=== PATIENT | male | born 1980 | race Caucasian/White ===

== ENCOUNTER 2020-02-20 00:10 | Outpatient (CLI) | payer OTHER, SELFPAY ==
[2020-02-20 18:02] LABS: SARS-CoV-2 RNA PCR Negative
== END 2020-02-20 00:11 | disposition home or self-care (01) ==
LOC: ANHCOVIDDT 00:10
PROVIDERS: PCP Nurse Practitioner Family; Visit Provider Surgery
DX: Z01.812 Encounter for preprocedural laboratory examination (principal); Z20.828 Contact with and (suspected) exposure to other viral communicable diseases
CPT/HCPCS: 87635; C9803; U0003

== ENCOUNTER 2020-02-23 01:37 | Day surgery (SDC) | payer OTHER, SELFPAY ==
[2020-02-18 08:52] VITALS: BMI 24.3
[2020-02-23 10:00] VITALS: BP 141/86; PULSE 60; RESP 18; TEMP 36.3; O2SAT 100
[2020-02-23] MEDS: LACTATED RINGERS 1,000 ML 30 ML IV CONT ×2 (10:01→12:34)
--- NOTE | 2020-02-23 10:11 | WPDANESEPPF ---
Anes - Initial Pre Proc Eval Procedure: Operation Date: 02/23/20 12:00 Proposed Procedures p Excision Left Shoulder Skin Lesion, Excision Left Face Skin Lesion - Bryant Horta DO Date/Time: 02/23/20 10:11 Surgeon: Bryant Horta DO Pre Op Diagnosis: Left Shoulder 2.5 cm Skin Lesion, Left Face Lesion Patient Data Age: 39 Gender: M Height: 5 ft 10 in Weight: 77.8 kg Last Vital Signs Temp 36.3 C L 02/23/20 10:00 Pulse 60 02/23/20 10:00 Resp 18 02/23/20 10:00 BP 141/86 H 02/23/20 10:00 Pulse Ox 100 02/23/20 10:00 Allergies Allergy/AdvReac Type Severity Reaction Status Date / Time No Known Allergies Allergy Verified 02/23/20 10:02 Home Medications Medication Instructions Recorded Confirmed Type No Home Medications 02/23/20 02/23/20 History Patient hx anesthesia problems: none Family hx anesthesia problems: none [facility] Past Medical History Medical History Nicotine dependence, cigarettes, uncomplicated No active medical problems Surgical History Surgical History History of left knee surgery Social History Social History Smoking packs per day: 1 Smoking cigarettes per day: 20.0 Years smoked: 10 Smoking pack-years: 10.00 Smoking status: Current every day smoker Tobacco type: cigarettes Alcohol intake: current Drinks per week: 12 Substance use: current Substance use type: marijuana Last use: 02/17/2020 Additional occupation/education comments: [employer] Spiritual care concerns: No Anes - Eval Final PreProcedure Day of Procedure 02/23/20 10:11 Patient weight: normal Heart: regular rate and rhythm Lungs: clear to auscultation Airway: Mallampati scale class II Neurological: alert and oriented Last oral intake: >/= 8 hours ASA classification: II Emergent: no Anesthetic plan: proceed Anesthesia type and monitoring: general GIVS and standard monitoring Informed Consent: The patient's anesthetic plan and its attendant risks and benefits were discussed with the patient/family/POA. Questions were solicited and answers provided to the satisfaction of the patient/family/POA.
--- NOTE | 2020-02-23 11:30 | WPDHPUPDATE1 ---
History and Physical Update Update Date/Time: 02/23/20 11:30 History and Physical has been reviewed, including an updated exam of the patient. There are NO changes in the patient's condition. Risks, benefits, and alternatives have been discussed and questions answered. Patient agrees to proceed with procedure.
[2020-02-23] MEDS: ceFAZolin 2 GM/D5W 50 ML 2 GM/50 ML BAG IVPB (11:51)
[2020-02-23] MEDS: LIDO 1%/EPINEPHRINE 1:100,000 20 ML VIAL INFILTRATE (12:09)
[2020-02-23 12:34] VITALS: BP 136/82; PULSE 87; RESP 12; O2SAT 100
--- NOTE | 2020-02-23 12:45 | P.OP_ITS ---
Procedure Note - Detailed Date of procedure: 02/23/20 Pre-op diagnosis: Left Shoulder 2 cm Skin Lesion, Left Face Lesion Post-op diagnosis: same Procedure performed: 1. Excision 2 cm left shoulder skin lesion 2. Excision 1 cm left face skin lesion Description of procedure: * procedure as well as risks, benefits, and alternatives were discussed with the patient. Written consent was obtained and placed in chart prior to procedure. Patient was brought back to surgical suite. He was placed supine on operating table. Time-out was done to confirm patient and procedure. IV sedation was administered by the Anesthesia Depar tment. His left shoulder and face area was prepped and draped in sterile fashion using Betadine prep. 1% lidocaine with epinephrine was infiltrated locally around each of the lesions. Wide elliptical incision was made around the left shoulder skin lesion using a 15 blade scalpel. 1 mm margins were obtained on either side of the skin lesion for a total width of 2 cm. The incision was carried all the way down through the dermis. The lesion was then excised the remainder of the way from the surrounding subcu attachments using electrocautery. The lesion was sent to the lab for pathology. Hemostasis was achieved with electrocautery and then the skin edges were reapproximated using 3 0 nylon vertical mattress interrupted sutures. Bacitracin ointment was applied followed by 4 x 4 gauze and Medipore tape. I then moved my attention over to the face lesion. A 1 cm transverse incision was made directly over the lesion using a 15 blade scalpel. I carefully sharply excise the lesion which appeared to be likely a cyst. The cyst was carefully completely excised intact and was sent to the lab for pathology. Electrocautery was then used for hemostasis. The skin edges were then reapproximated using 4 O Monocryl simple interrupted sutures. Exofin glue was applied over this incision. The patient was then awakened from anesthesia and transferred to recovery. Anesthesia: MAC and local ( 1% lidocaine with epinephrine) Surgeon: Bryant Horta DO Estimated blood loss (mL): 5 Pathology: yes Complications: No immediate complications Condition: stable Disposition: same day Findings: * the left shoulder skin lesion was excised. This had exophytic growth with pink margins, possible skin cancer versus granuloma formation. 1 mm margins were obtained on each side of the lesion for a total width of 20 mm. The left face lesion appeared to likely be a cyst. The cyst was carefully excised without rupturing. The entire cyst was completely excised intact and sent for pathology as well. This measured approximately 1 cm.
[2020-02-23 12:50] VITALS: BP 132/87; PULSE 75; RESP 16
[2020-02-23] MEDS: oxyCODONE HCL (*CRX) 5 MG TAB IR PO (12:53)
[2020-02-23 13:20] VITALS: BP 130/78; PULSE 70; RESP 16
== END 2020-02-23 13:30 | disposition home or self-care (01) ==
PROVIDERS: PCP Nurse Practitioner Family; Visit Provider Surgery
PROC: (CPT 11606; principal; 2020-02-23 12:00)
DX: C44.629 Squamous cell carcinoma of skin of left upper limb, including shoulder (principal); L72.0 Epidermal cyst; Z87.891 Personal history of nicotine dependence
CPT/HCPCS: 11606; 11442; 87635; 88304; 88305; A9270; C9803; J0690; J1100; J2250; J2405; J2704; J3010; J7120; U0003

== ENCOUNTER 2020-06-09 14:10 | Outpatient (CLI) | payer OTHER, SELFPAY ==
[2020-06-10 22:46] LABS: SARS-CoV-2 RNA PCR Negative
== END 2020-06-09 14:11 | disposition home or self-care (01) ==
LOC: CHSLAB 14:12
PROVIDERS: PCP Nurse Practitioner Family; Visit Provider Nurse Practitioner Family
DX: Z20.822 Contact with and (suspected) exposure to COVID-19 (principal)
CPT/HCPCS: C9803; U0003; U0005

== ENCOUNTER 2022-10-26 00:38 | Day surgery (SDC) | payer OTHER, SELFPAY ==
[2022-10-24 13:42] VITALS: BMI 24.3
--- NOTE | 2022-10-24 13:42 | PC.NURSE ---
Report to the Outpatient Waiting Room, entrance under the green pavilion located off [facility], at time _0900_ on date _10/26/22_. Planned Procedure Time: _1000_. Time changes happen often and if your time is changed the preop area will call you the afternoon before. - You and your visitor will be asked to self-screen and do not enter if you have any COVID symptoms. - A mask is optional within the hospital at this time. Patients may have clear liquids (water, carbonated beverages, clear teas, apple juice) until 3 hours prior to surgery with a maximum of 20 ounces. - No food from midnight until time of surgery - Infants may have breast milk until 4 hours before surgery, formula 6 hours prior to surgery. - Children will be allowed to drink immediately following surgery. If applicable, please bring a bottle or sippy cup to assist with drinking. Juice, water, soda, and popsicles are readily available. For infants on formula, please bring formula the day of surgery. Pacifiers are allowed. Take the following medications with a SIP of water the morning of surgery: DO NOT STOP ANY OF YOUR OTHER PRESCRIPTION MEDICATIONS PRIOR TO SURGERY ?EXCEPT THE FOLLOWING Medications to discontinue per physician Date to take last dose Please no make-up, nail portuguese, hairspray, perfume, deodorant, or body powder the day of surgery. No jewelry (including any body piercings) or valuables the day of surgery, leave them at home. Please take a shower or bath the night before, or the morning of, surgery with an antibacterial soap. Wear comfortable, loose fitting clothing. Children are encouraged to wear pajamas. - Jewelry must be removed prior to entering the operating room. Rings and piercings that are not removed may be cut off. - The hospital will not accept responsibility for valuables. - Please leave all valuables, including medications, at home the day of surgery. If you are going home after surgery, a licensed bus driver supervisor must drive you home. - NO public transportation without another adult if you receive anesthesia. - We recommend that an adult stay with you for 24 hours following discharge. - We also recommend that you do not drive, make important decision, drink alcoholic beverages, or take any drugs that were not prescribed by your health care provider for at least 24 hours after your discharge time. For Pediatric surgeries, we recommend two adults accompany the child home. Follow any additional instructions given to you from your surgeon. If you or anyone in your household have experienced Covid symptoms in the past week, please notify your surgeon or the nurse liaison at the phone number below for possible testing. Telephone instructions given to _patient_and asked if any additional questions and then verbalized understanding. Patient advised to call surgeon office or pre surgery nurse liaison [phone] if any additional questions.
[2022-10-26] VITALS (8 sets, daily range): BP systolic 100–111; BP diastolic 69–73; PULSE 53–83; RESP 14–16; TEMP 36.3; O2SAT 98–100
--- NOTE | 2022-10-26 07:12 | WPDHPUPDATE1 ---
History and Physical Update Update Date/Time: 10/26/22 07:12 History and Physical has been reviewed, including an updated exam of the patient. There are NO changes in the patient's condition. Risks, benefits, and alternatives have been discussed and questions answered. Patient agrees to proceed with procedure.
[2022-10-26] MEDS: ceFAZolin 2 GM/D5W 50 ML 2 GM/50 ML BAG IVPB (09:00)
--- NOTE | 2022-10-26 13:54 | W.PM.PROC2 ---
Procedure Note - Detailed Date of Procedure 10/27/22 Pre-op Diagnosis left carpal tunnel syndrome Post-op Diagnosis Same Procedure Performed Left open carpal tunnel release Surgeon Mario Aj MD Anesthesia Local Description of Procedure He was taken to the operating room where he was placed supine on the operating table. A time-out was held and confirmed the level left upper extremity was prepped and draped in usual fashion. Site was marked and the area locally infiltrated with 1% lidocaine with epinephrine. The extremity was exsanguinated and the tourniquet inflated to 250 mmHg. The incision was made as marked and blunt dissection through the subcutaneous tissue revealed the palmar fascia. This and the transverse retinaculum were incised with a 15. Blade. Under 3 point retraction the ligament was divided distally and then proximally for complete release. There was no unusual anatomy noted. The skin was then closed with interrupted 4-0 nylon suture. The usual bandage was applied and he is discharged from the operating room stable condition he has a prescription for hydrocodone 5/325 6 6. Estimated Blood Loss 0 Tourniquet Time 5 Drains No Packing No Pathology None sent Complications No immediate complications Condition Stable Disposition Same day
== END 2022-10-26 11:42 | disposition home or self-care (01) ==
PROVIDERS: PCP Physician Assistant; Visit Provider Plastic Surgery
PROC: (CPT 64721; principal; 2022-10-26 10:00)
DX: G56.02 Carpal tunnel syndrome, left upper limb (principal)
CPT/HCPCS: 64721; A9270; J0690

== ENCOUNTER 2022-11-30 03:00 | Day surgery (SDC) | payer OTHER, SELFPAY ==
[2022-11-22 13:26] VITALS: BMI 23.3
--- NOTE | 2022-11-22 13:34 | PC.NURSE ---
Report to the Outpatient Waiting Room, entrance under the green pavilion located off [facility], at time _1300_ on date _11/30/2022. Planned Procedure Time: 1400_. Time changes happen often and if your time is changed the preop area will call you the afternoon before. - You and your visitor will be asked to self-screen and do not enter if you have any COVID symptoms. - A mask is optional within the hospital at this time. Patient MAY EAT OR DRINK UNTIL THE TIME OF ARRIVAL TO THE HOSPITAL Take the following medications with a SIP of water the morning of surgery: NONE DO NOT STOP ANY OF YOUR OTHER PRESCRIPTION MEDICATIONS PRIOR TO SURGERY ?EXCEPT THE FOLLOWING Medications to discontinue per physician NONE Date to take last dose Please no make-up, nail estonian, hairspray, perfume, deodorant, or body powder the day of surgery. No jewelry (including any body piercings) or valuables the day of surgery, leave them at home. Please take a shower or bath the night before, or the morning of, surgery with an antibacterial soap. Wear comfortable, loose fitting clothing. Children are encouraged to wear pajamas. - Jewelry must be removed prior to entering the operating room. Rings and piercings that are not removed may be cut off. - The hospital will not accept responsibility for valuables. - Please leave all valuables, including medications, at home the day of surgery. For Pediatric surgeries, we recommend two adults accompany the child home. Follow any additional instructions given to you from your surgeon. If you or anyone in your household have experienced Covid symptoms in the past week, please notify your surgeon or the nurse liaison at the phone number below for possible testing. Telephone instructions given TO PATIENT__and asked if any additional questions and then verbalized understanding. Patient advised to call surgeon office or pre surgery nurse liaison [phone] if any additional questions.
[2022-11-30] VITALS (7 sets, daily range): BP systolic 109–127; BP diastolic 68–74; PULSE 75–91; RESP 14–18; TEMP 36.8; O2SAT 98–100
--- NOTE | 2022-11-30 12:14 | WPDHPUPDATE1 ---
History and Physical Update Update Date/Time: 11/30/22 12:14 History and Physical has been reviewed, including an updated exam of the patient. There are NO changes in the patient's condition. Risks, benefits, and alternatives have been discussed and questions answered. Patient agrees to proceed with procedure.
[2022-11-30] MEDS: LIDO 1%/EPINEPHRINE 1:100,000 20 ML VIAL 10 ML INFILTRATE (12:31)
--- NOTE | 2022-11-30 12:51 | P.OP_ITS ---
Procedure Note - Detailed Date of Procedure 11/30/22 Pre-op Diagnosis right carpal tunnel syndrome Post-op Diagnosis Same Procedure Performed Right open carpal tunnel release Surgeon Mario Aj MD Anesthesia Local Description of Procedure The right volar wrist was marked with the patient's consent in the holding area. He was taken to the operating room placed supine on the operating table. Time- out was held not confirmed. The site was remarked for incision. It was locally infiltrated with 1% lidocaine and epinephrine. The tourniquet was applied but not utilized. The incision was made as marked and dissection was carried bluntly through the subcutaneous tissue to the palmar aponeurosis. A few bleeding points were cauterized on the setting of 20. Under 3 point retraction aponeurosis and the transverse retinaculum were incised with a 15. Blade. The ligament was divided distally and then proximally to completely release it. There was no unusual anatomy noted. Skin was closed with interrupted 4-0 nylon suture in usual bandage was applied. The patient is discharged from the operating room stable condition with prescription for oxycodone 5/325 7. Estimated Blood Loss 2 Tourniquet Time 0 Drains No Packing No Pathology None sent Complications No immediate complications Condition Stable Disposition Same day
== END 2022-11-30 13:15 | disposition home or self-care (01) ==
PROVIDERS: PCP Physician Assistant; Visit Provider Plastic Surgery
PROC: (CPT 64721; principal; 2022-11-30 13:00)
DX: G56.01 Carpal tunnel syndrome, right upper limb (principal)
CPT/HCPCS: 64721; A9270

== ENCOUNTER 2023-05-11 10:27 | Emergency (ER) | payer OTHER, SELFPAY ==
[2023-05-11 10:27] VITALS: BP 111/70; PULSE 93; RESP 18; TEMP 36.6; O2SAT 100
--- NOTE | 2023-05-11 10:44 | ED.URI ---
HPI - URI/Sore Throat General Chief Complaint: Upper Respiratory Infection Stated Complaint: sore throat Time Seen by Provider: 05/11/23 10:38 Source: patient Mode of arrival: ambulatory Limitations: no limitations History of Present Illness HPI Narrative: Patient is a 42 year old male with a significant PMH that presents today with URI symptoms. He has cough, congestion, rhinorrea for the last 3 days. He also has a sore throat. He has body aches as well. He says his low back hurts from the body aches. He denies any sick contacts. He has not checked for COVID. He says the symptoms have been getting worse. MD elicited complaint: fever, cough, sore throat, rhinorrhea, nasal congestion and sinus pain Onset (ago): day(s) Consistency: constant Severity: mild Description of mucous: yellow and green Able to tolerate fluids by mouth: Yes Exacerbating factors: nothing Relieving factors: nothing Associated symptoms: myalgias, nasal congestion and sore throat Related Data Allergies Allergy/AdvReac Type Severity Reaction Status Date / Time No Known Allergies Allergy Verified 05/11/23 10:40 Review of Systems Review of Systems: All systems reviewed & are unremarkable except as noted in HPI and below Constitutional: Constitutional: Reports no additional constitutional complaints Eyes: Eyes: Reports no additional eye complaints ENT: Reports as per HPI Cardiovascular: Cardiovascular: Reports no additional cardiovascular complaints Respiratory: Respiratory: Reports as per HPI, Reports chest congestion and Reports cough Gastrointestinal: Gastrointestinal: Reports no additional gastrointestinal complaints Genitourinary: Genitourinary: Reports no additional male genitourinary complaints Musculoskeletal: Musculoskeletal: Reports no additional musculoskeletal complaints Integumentary/Breasts: Skin/Breast: Reports system reviewed and no additional complaints, except as docu Neurologic: Reports system reviewed and no additional complaints, except as documented Psychiatric: Psychiatric: Reports no additional psychiatric complaints Endocrine: Endocrine: Reports no additional endocrine complaints Hematologic/Lymphatic: Hematologic/Lymphatic: Reports no additional hematologic/lymphatic complaints Allergic/Immunologic: Allergic/Immunologic: Reports no additional allergic/immunologic complaints [facility] Past Medical History Medical History Nicotine dependence, cigarettes, uncomplicated No active medical problems Surgical History Surgical History History of left knee surgery Skin lesion of left upper extremity Social History Social History Smoking packs per day: 1 Smoking cigarettes per day: 20.0 Years smoked: 10 Smoking pack-years: 10.00 Smoking status: Current every day smoker Tobacco type: cigarettes Alcohol intake: former Drinks per week: 12 Alcohol use details: LAST USE IN DECEMBER 2021 Substance use: never Substance use type: marijuana Other substance usage details: ONCE PER WEEK Last use: 02/17/2020 Living arrangements: with family Occupation/Education: occupation Additional occupation/education comments: [employer] Spiritual care concerns: No Exam Const: General: ill appearing Nutritional Appearance: well nourished Orientation/consciousness: patient oriented x3 HENMT: Head: normal to inspection Ears: external ears normal Face/Nose/Sinus: Normal external nose present Face and sinus: normal facial exam Mouth: Yes Normal oral and palatal mucosa present Teeth and gingiva: abnormal tooth and associated gingiva Throat: posterior oropharynx normal Eyes: Conjunctivae: conjunctivae normal Pupils: Equal, round and reactive pupils present EOM: EOMs intact bilaterally Neck: Neck: normal visual inspection Chest: Chest pal
[2023-05-11] MEDS: cefTRIAXone 1 GM, LIDOCAINE HCL 1% LOCAL INJ 2.1 ML IM (11:12)
[2023-05-11] MEDS: KETOROLAC (*BKC) 60 MG/2 ML VIAL IM (11:13)
[2023-05-11 11:19] LABS: Strep Group A RT-PCR NOT DETECTED (Negative)
[2023-05-11 11:24] LABS: SARS-CoV-2 RNA PCR Positive (Negative)
[2023-05-11 11:25] LABS: Influenza A QL RT-PCR Negative (Negative); Influenza B QL RT-PCR Negative (Negative); RSV RNA, RT-PCR Negative (Negative)
[2023-05-11 11:30] VITALS: O2SAT 100
[2023-05-11 11:49] VITALS: BP 110/82; PULSE 90; RESP 18; TEMP 36.7; O2SAT 100
== END 2023-05-11 11:49 | disposition home or self-care (01) ==
PROVIDERS: Emergency Provider Family Medicine; PCP Physician Assistant
DX: U07.1 COVID-19 (principal); H60.501 Unspecified acute noninfective otitis externa, right ear; J06.9 Acute upper respiratory infection, unspecified; F17.210 Nicotine dependence, cigarettes, uncomplicated
CPT/HCPCS: 87637; 87651; 96372; 99284; J1885

== ENCOUNTER 2024-04-16 07:28 | Outpatient (CLI) | payer OTHER, SELFPAY ==
--- NOTE | ~2024-04-16 | XR_ITS ---
Right Shoulder Technique: AP and scapular Y views were obtained. Clinical History: Pain Findings: No fracture or dislocation is seen. Osseous alignment is anatomic. The glenohumeral and acr omioclavicular joint spaces are preserved. Soft tissues are unremarkable. Impression: Unremarkable right shoulder radiographs. Reviewed, dictated and finalized at [facility]. 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
== END 2024-04-16 07:29 | disposition home or self-care (01) ==
LOC: CHSIMG 07:31
PROVIDERS: PCP Physician Assistant; Visit Provider Physician Assistant
DX: M25.511 Pain in right shoulder (principal)
CPT/HCPCS: 73030

== ENCOUNTER 2024-06-09 15:10 | Outpatient (RCR) | payer OTHER, SELFPAY ==
--- NOTE | 2024-06-09 16:27 | PTOPEVAL1 ---
Assessment and note entered by Blu العلي Evaluation Information Assessment Status Evaluation ICD-10 Condition Codes (PT) Pain in right shoulder M25.511 Onset 01/27/24 Subjective Information Pt. reports that he injured the right shoulder around January. He had no incident, just gradual onset of pain. He describes pain in the area of the anterior and posterior shoulder. He reports that he underwent x-ray which was negative . he reports that he gets increased pain with putting weight through the right arm. 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 He states that pain will wake him at night. He states that he uses Aleve before bed to help reduce pain. He states that he cannot lay on the right shoulder. He notes increased pain with reaching behind his back and overhead. He states that his goal is to reduce his right shoulder pain. He is right hand dominant. Reported Pain Level Pain Score 7: Self Report Assessment PT Clinical Summary Pt. is a 43 year old male who enters the clinic with right shoulder pain. Pt. presents with indications of impingement syndrome on the right on this date. He demonstrates improved proximal right u.e. strength, impaired shoulder IR ROM on right and impaired postural awareness and pain on this date. Continued skilled PT is indicated in order to improve these areas to allow the pt. to be able to participate in IADL's with improved comfort and efficiency. Plan of Care Interventions Electrical Stimulation,Hot Pack/Cold Pack,Neuro Re -education,Patient/Caregiver Education,Therapeutic Activities,Therapeutic Exercise PT Services Indicated Yes Treatment Frequency and 2x/week x 8 visits Duration These treatments will address the objective and functional deficits as defined above. The patient will be advanced safely and appropriately in order for the patient to progress towards his/her prior level of function. Additional exercises will be introduced and as well as a comprehensive home exercise program upon discharge, if needed, ?to ensure carryover of functional gains achieved in the clinic. This treatment plan has been reviewed and agreement upon by the patient.
--- NOTE | 2024-06-09 16:29 | OPREHPOC ---
Outpatient Therapy Plan of Care This is a Multidisciplinary Plan of Care that may contain components documented by all disciplines (PT, OT, and ST.) PT Problem 1 PT Problem #1 Knowledge Deficit PT Goal 1 Goal / Goal Update Pt. will be independent with a HEP addressing strength and postural awarness Target Visit 2 PT Problem 2 PT Problem #2 Pain PT Goal 1 Goal / Goal Update Reduce pain reports to 4/10 at worst with all work related duties and lifting activities Target Visit 8 PT Problem 3 PT Problem #3 Impaired Strength PT Goal 1 Goal / Goal Update demonstrate 5/5 proximal right u.e strength lift 10# object overhead with right elbow extended without pain for 10 reps Target Visit 8 PT Problem 4 PT Problem #4 Impaired Functional Mobility PT Goal 1 Goal / Goal Update Pt. report being able to sleep without pain disturbance and use of medication Target Visit 8
--- NOTE | 2024-06-26 16:37 | PCPTNOTE ---
06/26/24: Pt cancelled due to being sick. -Ngozi Grijalva, PT
--- NOTE | 2024-07-08 16:34 | PCPTNOTE ---
Patient called & cancelled scheduled appointment this date due to being sick. -Ngozi Grijalva, PT
--- NOTE | 2024-07-10 16:19 | PCPTNOTE ---
07/10/24: Pt cancelled today's appointment after note was opened. -Ngozi Grijalva, PT
--- NOTE | 2024-07-15 17:14 | OPREHPOC ---
Outpatient Therapy Plan of Care This is a Multidisciplinary Plan of Care that may contain components documented by all disciplines (PT, OT, and ST.) PT Problem 1 PT Problem #1 Knowledge Deficit PT Goal 1 Goal / Goal Update Pt. will be independent with a HEP addressing strength and postural awarness Target Visit 2 Progress Met PT Problem 2 PT Problem #2 Pain PT Goal 1 Goal / Goal Update Reduce pain reports to 4/10 at worst with all work related duties and lifting activities Target Visit 8 Progress Not Met PT Problem 3 PT Problem #3 Impaired Strength PT Goal 1 Goal / Goal Update demonstrate 5/5 proximal right u.e strength -met lift 10# object overhead with right elbow extended without pain for 10 reps -not met Target Visit 8 Progress Partially Met PT Problem 4 PT Problem #4 Impaired Functional Mobility PT Goal 1 Goal / Goal Update Pt. report being able to sleep without pain disturbance and use of medication Target Visit 8 Progress Not Met
--- NOTE | 2024-07-15 17:14 | PTOPDC ---
Assessment and note entered by Ngozi Grijalva, PT Evaluation Information Assessment Status Discharge ICD-10 Condition Codes (PT) Pain in right shoulder M25.511 Onset 01/27/24 Subjective Information Jeffrey Omer reports his right shoulder is doing a little better however, he has not been lifting as much at work due to the cold weather. He also has been avoiding lifting at home. He continues to have difficulty getting to sleep and lifting overhead. He plans to call the doctor for a follow up and see about getting a MRI. Reported Pain Level Pain Score 3: Self Report Pain Score 3: Self Report Assessment PT Clinical Summary Jeffrey Omer has completed 7 skilled PT visits for right shoulder pain. He is reporting minimal improvements in right shoulder pain and still has difficulty sleeping and lifting past shoulder height. He demonstrates pain at end range flexion and abduction AROM of the right shoulder and positive special tests for impingement and possible rotator cuff pathology. He plans to follow up with his physician regarding ongoing pain and deficits. He will be discharged from skilled PT at this time. Plan of Care PT Services Indicated No
== END 2024-07-15 17:17 | disposition home or self-care (01) ==
LOC: CHSPT 15:10
PROVIDERS: Visit Provider Physician Assistant
DX: M25.511 Pain in right shoulder (principal)
CPT/HCPCS: 97014; 97110; 97140; 97161; G0283

== ENCOUNTER 2024-08-02 07:37 | Outpatient (CLI) | payer OTHER, SELFPAY ==
--- NOTE | ~2024-08-02 | MR_ITS ---
EXAMINATION: MR shoulder RT wo con DATE: 08/02/2024 08:34 INDICATION: Right upper extremity pain radiating down the right arm. TECHNIQUE: Magnetic resonance imaging (MRI) of the right shoulder was performed without intravenous c ontrast. Sequences included axial PD-weighted FS FSE, coronal oblique PD-weighted FS FSE and T2-weigh syed FS FSE, and sagittal oblique T2-weighted FS FSE and T1-weighted FSE. COMPARISON: Right shoulder radiographs 04/16/2024 FINDINGS: Coracoacromial arch: The acromion undersurface is curved in morphology (type II). There is moderate osteoarthritis of acro mioclavicular joint with prominent edema-like marrow signal intensity and capsular hypertrophy and ed terri. There is mild subacromial/subdeltoid bursitis. Rotator cuff: There is severe tendinopathy of the conjoined portion of supraspinatus and infraspinatus tendons. Ter es minor tendon is normal. Subscapularis tendon is normal. The rotator cuff muscle bellies are normal . Biceps tendon and glenoid labrum: Biceps tendon is in bicipital groove. There is a longitudinal split tear of biceps tendon. The glenoi d labrum is normal. Fluid: There is a small glenohumeral joint effusion. Bones/cartilage: Glenoid cartilage is normal. Humeral head cartilage is normal. IMPRESSION: 1. Moderate acromioclavicular joint osteoarthritis. 2. Severe rotator cuff tendinopathy. No tear. 3. Longitudinal split tear of biceps tendon. 4. Mild subacromial/subdeltoid bursitis. 5. Small glenohumeral joint effusion. Reviewed, dictated and finalized at location A. T NURSE
--- OUTSIDE RECORDS SUMMARY | 2024-08-02 07:40 | XMS_ITS | Encounter Summary ---
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
--- OUTSIDE RECORDS SUMMARY | 2024-08-02 07:40 | XMS_ITS | Clinical Summary ---
Author Organization [facility] Address [address] [place] [address] Care Team Providers Care Csr Retail Name Role Phone Christopher Roger MD Primary Care Provider [phone] [facility],non-owned Affiliates and Associated Physician Practices is amultiple site organization consisting of ambulatory clinics and hospital sitesin [place], [place], [place] and [place]. This disclosure is being madepursuant to the Care Everywhere program and may not contain all information available regarding this patient. Last updated 18.[facility] Active Problems Problem Noted Date Diagnosed Date Laceration of left lower leg without foreign bod y 04/05/2014 Immunizations Name Administration Dates Next Due INFLUENZA VACCINE, TRIV. (AF LURIA, FLUZONE TRIVALENT; 6MO+) (IIV3) 04/06/2014 PNEUMOCOCCAL PPSV23 04/06/2014 Social History Tobacco Use Types Packs/Day Years Used Date Smoking Tobacco: Every Day Cigarettes Alcohol Use Standard Drinks/Week Comments Yes 0 (1 standard drink = 0.6 oz pur e alcohol) Sex and Gender Information Value Date Recorded Sex Assigned at Not on file Gender Identity Not on file Sexual Orientation Not on file Last Filed Vital Signs Vital Sign Reading Time Taken Comments Blood Pressure 137/81 05/26/2014 1:46 PM DOT NET DEVELOPER Pulse 84 05/26/2014 1:46 PM DOT NET DEVELOPER Temperature 36.7 C (98.1 F) 05/26/2014 1:46 PM DOT NET DEVELOPER Respiratory Rate 16 04/06/2014 1:10 PM DOT NET DEVELOPER Oxygen Saturation 100% 04/06/2014 1:10 PM DOT NET DEVELOPER Inhaled Oxygen Concentration - - Weight 79.6 kg (175 lb 6.4 oz) 05/26/2014 1:46 P M DOT NET DEVELOPER Height 177.8 cm (5' 10 ) 05/26/2014 1:46 PM DOT NET DEVELOPER Body Mass Index 25.17 05/26/2014 1:46 PM DOT NET DEVELOPER Plan of Treatment Health Maintenance Due Date Last Done Comments LIPID TESTING 1982 HIV SCREENING 1997 HEPATITIS C SCREENING 10/20/2000 DTAP/TDAP/TD VACCINES (1 - Tdap) 2001 HEPATITIS B VACCINE (1 of 3 - 19+ 3-dose series) 2001 COVID-19 VACCINE (1 - 2023-2 5 season) 2024 INFLUENZA VACCINE (#1) 2024 04/06/2014 DEPRESSION SCREENING 05/28/2024 ZOSTER VACCINE (1 of 2) 2032 PNEUMOCOCCAL VACCINE Aged Out 04/06/2014 No long er eligible based on patient's age to complete this topic HIB VACCINE Aged Out No longer eligi ble based on patient's age to complete this topic HPV VACCINE Aged Out No longer eligi ble based on patient's age to complete this topic MENINGOCOCCAL (Group B) VACCINE Aged Out No longer eligible based on patient's age to complete this topic MENINGOCOCCAL VACCINE Aged Out No feli gaurav eligible based on patient's age to complete this topic Care Teams Csr Retail Relationship Specialty Start Date End Date Christopher Roger MD [address] [place] [address] [place] [address] PCP - General 04/21/14
--- OUTSIDE RECORDS SUMMARY | 2024-08-02 07:40 | XMS_ITS | Clinical Summary ---
Author Organization [facility] Address [address] [place] [address] Care Team Providers Care Reordering Clerk Name Role Phone Phu Causey Primary Care Provider [phone] Silvestre Brewster MD Unavailable + [phone] Allergies No known active allergies Medications No known medications Active Problems No known active problems Social History Tobacco Use Types Packs/Day Years Used Date Smoking Tobacco: Every Day Smokeless Tobacco: Never Personal Safety Answer Date Recorded Getting School Help Needed Not on file 05/21 Sex and Gender Information Value Date Recorded Sex Assigned at Not on file Legal Sex Male 12:16 PM CDT Gender Identity Not on file Sexual Orientation Not on file Obstetrics History Last Filed Vital Signs Vital Sign Reading Time Taken Comments Blood Pressure 127/78 04/07/2021 8:54 AM AUTOMOTIVE GLAZIER Pulse 72 04/07/2021 8:54 AM AUTOMOTIVE GLAZIER Temperature 36.3 C (97.3 F) 04/07/2021 8:54 AM AUTOMOTIVE GLAZIER Respiratory Rate 14 04/07/2021 8:54 AM AUTOMOTIVE GLAZIER Oxygen Saturation - - Inhaled Oxygen Concentration - - Weight 76.7 kg (169 lb) 04/07/2021 8:54 AM AUTOMOTIVE GLAZIER Height 177.8 cm (5' 10 ) 04/07/2021 8:54 AM AUTOMOTIVE GLAZIER Body Mass Index 24.25 04/07/2021 8:54 AM AUTOMOTIVE GLAZIER Plan of Treatment Health Maintenance Due Date Last Done Comments Depression Screening 1982 Hepatitis C Screening 1982 Varicella Vaccines (1 of 2 - 13+ 2-dose series) 10/26/1995 Hepatitis B Screening 2000 Regular Well Visit/Exam 18-64 2000 Pneumococcal vaccine <65 (2 of 2 - PCV) 04/06/2015 04/06/2014 Influenza Vaccine (#1) 2024 04/06/2014 DTaP/Tdap/Td Vaccine (8 - Td or Tdap) 05/28/2024 05/28/2014, 11/02/2013, 12/29/1987, Additional history exists HPV Vaccines Aged Out No longer eligi ble based on patient's age to complete this topic Insurance [facility] Care Teams Reordering Clerk Relationship Specialty Start Date End Date Phu Causey PA [address] [place] [address] PCP - General Family Practice 01/05/21 Silvestre Brewster MD [address] [place] [address] Consulting Physician Cardiology 04/06/21
--- OUTSIDE RECORDS SUMMARY | 2024-08-02 07:40 | XMS_ITS | Referral Summary ---
Author Organization [facility] Address [address] [place] [address] Care Team Providers Care Vacuum Forming Machine Operator Name Role Phone Phu Causey Primary Care Provider [phone] Silvestre Brewster MD Unavailable + [phone] Allergies No known active allergies Medications No [...] Comments Blood Pressure 127/78 04/07/2021 8:54 AM CATH LAB TECHNOLOGIST Pulse 72 04/07/2021 8:54 AM CATH LAB TECHNOLOGIST Temperature 36.3 C (97.3 F) 04/07/2021 8:54 AM CATH LAB TECHNOLOGIST Respiratory Rate 14 04/07/2021 8:54 AM CATH LAB TECHNOLOGIST Oxygen Saturation - - Inhaled Oxygen Concentration - - Weight 76.7 kg (169 lb) 04/07/2021 8:54 AM CATH LAB TECHNOLOGIST Height 177.8 cm (5' 10 ) 04/07/2021 8:54 AM CATH LAB TECHNOLOGIST Body Mass Index 24.25 04/07/2021 8:54 AM CATH LAB TECHNOLOGIST Plan of Treatment Not on file Insurance [facility] Address: [address] [address] [place] [address] [facility] Address: [address] [address] [place] [address] Care Teams Vacuum Forming Machine Operator Relationship Specialty Start Date End Date Phu Causey PA [address] [place] [address] PCP - General Family Practice 01/05/21 Silvestre Brewster MD [address] [place] [address] Consulting Physician Cardiology 04/06/21
--- OUTSIDE RECORDS SUMMARY | 2024-08-02 07:40 | XMS_ITS | Clinical Summary ---
Author Organization [facility] Address [facility] [place] [address] Care Team Providers Care Cotton Wringer Name Role Phone None, Provider Primary Care Provider Unavaila ble Allergies Active Allergy Reactions Criticality Noted Date Comments Poison Kaylee Extract Rash Low 12/15/2020 Family History Medical History Relation Comments Diabetes Maternal Grandfather Epilepsy Maternal Uncle Diabetes Paternal Grandfather Relation Status Comments Maternal Grandfather Maternal Uncle Alive Paternal Grandfather Social History Tobacco Use Types Packs/Day Years Used Date Smoking Tobacco: Every Day Cigarettes Smokeless Tobacco: Never Alcohol Use Standard Drinks/Week Comments Yes 13.3 (1 standard drink = 0.6 oz pure alcohol) Sex and Gender Information Value Date Recorded Sex Assigned at Not on file 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 Gender Identity Not on file Sexual Orientation Not on file Last Filed Vital Signs Vital Sign Reading Time Taken Comments Blood Pressure 91/60 11/17/2021 3:39 PM CDT Pulse 119 11/17/2021 3:39 PM CDT Temperature 37.1 C (98.7 F) 11/17/2021 2:50 PM CDT Respiratory Rate 18 11/17/2021 2:50 PM CDT Oxygen Saturation 98% 11/17/2021 2:50 PM CDT Inhaled Oxygen Concentration - - Weight 74.8 kg (165 lb) 11/17/2021 2:50 PM CDT Height 177.8 cm (5' 10 ) 11/17/2021 2:50 PM CDT Body Mass Index 23.68 11/17/2021 2:50 PM CDT Plan of Treatment Health Maintenance Due Date Last Done Comments Annual Physical 1985 Hepatitis C 2000 Hepatitis B Vaccines (1 of 3 - 19+ 3-dose series) 2001 Pneumococcal Vaccine: Pediatrics (0 to 5 Years) and At-Risk Patients (6 to 64 Years) (2 of 2 - PCV) 04/06/2015 04/06/2014 COVID-19 Vaccine (2 - season) 2024 11/07/2020 Influenza Adult (#1) 2024 04/06/2014 DTaP, Tdap and Td Vaccines (2 - Td or Tdap) 05/28/2024 05/28/2014, 12/29/1987, 07/30/1984, Additional history exists HPV Vaccines Aged Out No longer eligi ble based on patient's age to complete this topic Meningococcal B Vaccine Aged Out No l onger eligible based on patient's age to complete this topic Meningococcal Vaccine Aged Out No feli gaurav eligible based on patient's age to complete this topic RSV Immunizations Under 20 Months Aged Out No longer eligible based on patient's age to complete this topic Insurance [facility] Care Teams Cotton Wringer Relationship Specialty Start Date End Date None, Provider, PCP - General 12/15/20
--- OUTSIDE RECORDS SUMMARY | 2024-08-02 07:40 | XMS_ITS | Data Portability ---
Author Organization [facility] Address [address] [place] [address] Care Team Providers Care Audit Partner Name Role Phone CLARA CAUSEY Primary Care Provider Assessment No assessment recorded. Plan of Treatment Reminders Order Date Submit Date Provider Last Modified By Organization Details Last Modified Time Details Appointments None recorded. Lab None recorded. Referral physical therapist referral 2024 025 [facility], [address] [place], [address], 5 07:54:42 Procedures None recorded. Surgeries None recorded. Imaging MRI, shoulder, w/o contrast 2024 025 [facility], [address] [place], [address], 5 17:07:45 XR, shoulder, 2 or more view 2023 024 [facility] (Registration ), [address] [place], [address], 4 09:00:07 Medication Orders ketorolac 60 mg/2 mL intramuscu lar solution 2023 024 [email or web address] Not available 5 15:54:34 fluoxetine 20 mg capsule 2023 024 [facility], [address], [place], [id number], 4 18:59:57 fluoxetine 20 mg capsule 2023 024 [facility] [address], [place], [id number], 4 14:14:17 Patient TargetsNo targets recorded. Patient InstructionsNo instructions recorded. Reason for Referral Physical Therapist Referral for Pain of right shoulder joint Referring Physician: Clara Causey, Family Medicine, Encounter Date: 06/04/2024 Results Created Date Observation Date Name Description Value Unit Range Abnormal Flag Note LastModifiedBy Organization Detail LastModifiedTime 04/16/20 24 04/16/2024 XR, shoul ana, 2 or more view No observ ation record ed. [facility] [address] [place], [address], 04/16/2024 16:43:19 Result Notes None recorded. Problems No Known Problems Procedures Surgical History Date Name Laterality Status Provider Name and Address Organization Details Recorded Time 3 Carpal tunnel surgery completed Frida Negrete MA [facility] 07/06/2023 10:33:21 3 Carpal tunnel surgery completed Frida Negrete [place] [facility] 07/06/2023 10:33:09 Remove tonsils and adenoids completed Glenda Alcazar MA [facility] 04/03/2019 14:00:19 Imaging Results Imaging Date Name Status LastModified by Organiz ation Details LastModified Time 04/16/2024 XR, shoulder, [address] [facility] [address] [place], [address], 04/16/2024 16:43:19 Procedure Notes None recorded. Medical Equipment None Reported. Allergies No known drug allergies Medications Name Sig Start Date Stop Date Status Note LastModified by Organization Details LastModified Time cyclobenzap rine 10 mg tablet Take 1 tablet 3 times a day by oral route for 14 days. 12/23 completed Not Available Not Available Not Available amoxicillin 500 mg capsule 04/08 completed Not Available Not Available Not Available hydrocodone 5 mg-acetamin ophen 325 mg tablet 07/06 completed Not Available Not Available Not Available naltrexone 50 mg tablet 1 daily 07/18 completed Not Available Not Available Not Available triamcinolo ne acetonide 0.1 % topical cream APPLY A THIN LAYER TO THE AFFECTED AREA(S) BY TOPICAL ROUTE 2 TIMES PER DAY as needed active Not Available Not Available No t Available Depo-Medrol 80 mg/mL suspension for injection Take 1 mg by injection route. 07/18 completed Not Available Not Available Not Available chlordiazep oxide 25 mg capsule 07/18 completed Not Available Not Available Not Available methylpredn isolone 4 mg tablets in a dose pack Take 1 dose pk by oral route as directed. 10/08 completed Not Available Not Available Not Available ketorolac 60 mg/2 mL intramuscul ar solution Inject 2 mL by intramusc ular route. 06/04 completed Not Available Not Available Not Available fluoxetine 20 mg capsule Take 1 capsule every day by oral route for 90 days. active Not Available Not Available No t Available amoxicillin 875 mg-potassiu m clavulanate 125 mg tablet 07/06 completed Not Available Not Available Not Available neomycin-po lymyxin-hyd rocort 3.5 mg-10,000 unit/mL-1 % ear drops,susp INSTILL 4 DROPS INTO AFFECTED EAR(S) BY OTIC ROUTE 3 TIMES PER DAY 10/08 completed Not Available Not Available Not Available Bactrim DS 800 mg-160 mg tablet Take 1 tablet every 12 hours by oral route for 10 days. 12/29 completed Not Available Not Available Not Available ciprofloxac in 0.3 %-dexametha sone 0.1 % ear drops,suspe nsion 07/06 completed Not Available Not Available Not Available Solu-Medrol (PF) 40 mg/mL solution for injection Take 40 mg every day by injection route for 1 day. 11/08 completed Not Available Not Available Not Available Vitals Date Recorded Body height Body mass index (BMI) Body weight Oxygen saturation Oxygen saturation in Arterial blood by Pulse oximetry Heart rate Systolic blood pressure Diastolic blood pressure Provider Name and Address Organization Details Last Updated DateTime 4 177.8 cm 22.2 kg/m2 55927.8 2 g 99 % 99 % 87 /min 132 mm[Hg] 86 mm[Hg] Tiffany Glover MA [facility] 4 13:54:43 Date Recorded Body height Body mass index (BMI) Body weight Respiratory rate Oxygen saturation Oxygen saturation in Arterial blood by Pulse oximetry Heart rate Systolic blood pressure Diastolic blood pressure Provider Name and Address Organization Details Last Updated DateTime 4 177.8 cm 23.6 kg/m2 41129.5 9 g 16 /min 98 % 98 % 81 /min 119 mm[Hg] 81 mm[Hg] Kina Villar MA [facility] 4 18:50:37 Date Recorded Body height Body mass index (BMI) Body weight Oxygen saturation Oxygen saturation in Arterial blood by Pulse oximetry Heart rate Systolic blood pressure Diastolic blood pressure Provider Name and Address Organization Details Last Updated DateTime 4 177.8 cm 23.4 kg/m2 58801.9 6 g 99 % 99 % 54 /min 123 mm[Hg] 79 mm[Hg] Tiffany Glover MA [facility] 4 19:29:47 Date Recorded Body height Body mass index (BMI) Body weight Oxygen saturation Oxygen saturation in Arterial blood by Pulse oximetry Heart rate Systolic blood pressure Diastolic blood pressure Provider Name and Address Organization Details Last Updated DateTime 5 177.8 cm 23.3 kg/m2 70347.3 6 g 98 % 98 % 72 /min 120 mm[Hg] 79 mm[Hg] Tiffany Glover MA [facility] 5 15:56:19 Date Recorded Body height Body mass index (BMI) Body weight Respiratory rate Oxygen saturation Oxygen saturation in Arterial blood by Pulse oximetry Heart rate Body temperature Systolic blood pressure Diastolic blood pressure Provider Name and Address Organization Details Last Updated DateTime 5 177.8 cm 23.8 kg/m2 81346.6 7 g 18 /min 97 % 97 % 75 /min 98.1 [degF] 124 mm[Hg] 78 mm[Hg] NATHANIEL Avery [facility] 16:08:13 Social History Question Answer Notes LastModified by Organizat ion Details LastModified Time Tobacco Smoking Status Current Every Day Smoker Glenda Alcazar MA [facility], [place] [facility] 04/03/2019 13:59:12 What Is Your Level Of Alcohol Consumption? None Information not available 07/18/2022 Are You Blind Or Do You Have Difficulty Seeing? No Information not available 12/29/2020 What Is Your Level Of Caffeine Consumption? Heavy Information not available 07/18/2022 How Much Tobacco Do You Chew? None Information not available 04/03/2019 In The 14 Days Before Symptom Onset, Have You Had Close Contact With A Laboratory-confi rmed COVID-19 While That Case Was Ill? No Information not available 12/29/2020 In The 14 Days Before Symptom Onset, Have You Had Close Contact With A Person Who Is Under Investigation For COVID-19 While That Person Was Ill? No Information not available 12/29/2020 Have You Been To An Area Known To Be High Risk For COVID-19? No Information not available 12/29/2020 Are You Currently Employed? Yes Information not available 12/29/2020 Are You Deaf Or Do You Have Serious Difficulty Hearing? No Information not available 12/29/2020 What Type Of Diet Are You Following? REGULAR Information not available 12/29/2020 Which Illicit Or Recreational Drugs Have You Used? None Information not available 04/03/2019 Do You Or Have You Ever Used E-cigarettes Or Vape? Never Used Electronic Cigarettes Information not available 04/03/2019 What Is Your Occupation? [employer] Information not available 12/29/2020 Are There Any Guns Present In Your Home? No Information not available 12/29/2020 What Was The Date Of Your Most Recent Tobacco Screening? 07/25/2024 Information not available 07/25/2024 What Is Your Relationship Status? Information not available 07/18/2022 Do You Use Your Seat Belt Or Car Seat Routinely? Yes Information not available 12/29/2020 Smoke Alarm In Home Yes Information not available 04/03/2019 Do You Have Smoke And Carbon Monoxide Detectors In Your Home? Yes Information not available 12/29/2020 At What Age Did You Start Smoking Tobacco? 28 Information not available 04/03/2019 Are You Passively Exposed To Smoke? Yes Information not available 04/03/2019 Do You Or Have You Ever Used Smokeless Tobacco? Never Used Smokeless Tobacco Information not available 04/03/2019 How Much Tobacco Do You Smoke? 1 PPD Information not available 04/03/2019 General Stress Level Low Information not available 04/03/2019 Do You Feel Stressed (tense, Restless, Nervous, Or Anxious, Or Unable To Sleep At Night)? [id number] Information not available 07/18/2022 Do You Use Any Illicit Or Recreational Drugs? Yes Marijuana 07/25/24 Information not available 07/25/2024 Has Tobacco Cessation Counseling Been Provided? Yes Information not available 12/23/2021 On What Date Was Tobacco Cessation Counseling Provided? 07/25/2024 Information not available 07/25/2024 How Many Years Have You Smoked Tobacco? 10 Information not available 04/03/2019 Do You Or Have You Ever Used Any Other Forms Of Tobacco Or Nicotine? No Information not available 12/23/2021 Sex: Male Functional Status Question Answer Note LastModified by Organization D etails LastModified Time Are you able to care for yourself? Yes Information n ot available 12/29/2020 What is your exercise level? None [email or web address] Information not available 04/08/2024 Mental Status None recorded. Family History Relationship Description Onset Age of this Age Resolved Age Notes LastModified by Organization Details LastModified Time Father No current problems or disability [email or web address] Not available 11/2018 13:59:08 Mother No current problems or disability [email or web address] Not available 11/2018 13:59:08 Notes:07/25/24 Medical History Condition Response Coronary Artery Disease N Other N High Blood Pressure N Atrial Fibrillation N Thyroid Problems N Kidney or Bladder Problems N GI Problems N Depression N COPD N Blood Clots N Skin Problems N Eating Disorder N Anemia N Heart Attack (HI) N Diabetes N Anxiety Disorder N Muscle, Joint, or Bone Problems N Seizures/Epilepsy N Acid Reflux (GERD) N Cancer N Stroke N Asthma N Allergies N ADHD N Substance Abuse N High Cholesterol N Hepatitis N Liver Disease N Schizophrenia N Headaches N Osteoporosis N Heart Failure N Immunizations Vaccine Type Date Status Note Provider Nam e and Address Organization Details Recorded Time Tdap 5 completed Glenda Alcazar [place], [place] [facility] 04/03/2019 14:00:42 MMR 3 completed Frida Negre[place] [facility] 08/31/2022 09:53:28 MMR 4 completed Frida Negre[place] [facility] 08/31/2022 09:53:28 COVID-19, mRNA, LNP-S, PF, 30 mcg/0.3 mL dose 2 completed Frida Negrete [place] [facility] 08/31/2022 09:53:28 COVID-19, mRNA, LNP-S, PF, 30 mcg/0.3 mL dose 1 completed TL Bright, [place] [facility] 08/31/2022 09:53:28 COVID-19, mRNA, LNP-S, PF, 30 mcg/0.3 mL dose 1 completed Frida Negrete [place] [facility] 08/31/2022 09:53:28 Tdap 4 completed Frida Negre[place] [facility] 08/31/2022 09:53:28 DTP 4 completed TL [place] [facility] 08/31/2022 09:53:28 DTP 5 completed TL [place] [facility] 08/31/2022 09:53:28 DTP 8 [place] TL [place] [facility] 08/31/2022 09:53:28 DTP 3 [place] TL [place] [facility] 08/31/2022 09:53:28 DTP 3 completed Frida Negre[place] [facility] 08/31/2022 09:53:29 OPV 4 completed Frida Negre[place] [facility] 08/31/2022 09:53:29 OPV 5 completed Frida Negre[place] [facility] 08/31/2022 09:53:29 OPV 8 completed Frida Negre[place] [facility] 08/31/2022 09:53:29 OPV 3 completed Frida Negre[place] [facility] 08/31/2022 09:53:29 OPV 3 completed Frida Negre[place] [facility] 08/31/2022 09:53:29 pneumococcal polysaccharide PPV23 4 completed NATHANIEL Avery[place] [facility] 07/25/2024 15:53:15 Influenza, split virus, trivalent, preservative 4 completed Migdalia Carranza RMElissa [place] [facility] 07/25/2024 15:53:15 Past Encounters Encounter ID Performer Location Encounter Start Date Encounter Closed Date Diagnosis/Indication Diagnosis SNOMED-CT Code Diagnosis ICD10 Code Diagnosis Note [id number] Glenda Alcazar MA [facility] [address] [place] [address] 04/03/2019 13:52:20 04/03/2019 15:57:06 Basal cell carcinoma of skin 284499184 C44.91 [id number] LEONIDES Flores [facility] [address] [place] [address] 12/29/2020 09:41:50 12/29/2020 10:58:34 Neck pain 29617053 M54.2 Chest wall pain 07492174 6 R07.89 Hyperlipid emia screening 273214844 Z13.220 Ventricula r premature complex 759196419 I49.3 [id number] LEONIDES Flores [address] [place] [address] 12/23/2021 14:31:59 12/23/2021 15:07:10 Benign paroxysmal positional vertigo 967626324 H81.12 [id number] [address]ida [address] MA [facility] [address] [place] [address] 02/16/2022 14:13:39 02/16/2022 16:02:29 Contact dermatitis 81450382 L25.9 [id number] Clara Causey PA-C [facility] [address] [place] [address] 07/18/2022 11:36:49 07/18/2022 12:12:59 Bilateral carpal tunnel syndrome 3700753747 7385781 G56.03 Overweight 749940765 E66 .3 [id number] Clara Causey PA-C [facility] [address] [place] [address] 08/31/2022 16:40:45 09/01/2022 10:31:52 Bilateral carpal tunnel syndrome 7235140430 8031845 G56.03 Overweight 721997285 E66 .3 [id number] Clara Causey PA-C [facility] [address] [place] [address] 07/06/2023 10:14:28 07/09/2023 15:06:52 Dysfunction of right eustachian tube 9483355830 087175 H68.011 Body mass index 20-24 - normal 803433842 Z68.23 [id number] AKIKO BURRIS-VAN [facility] [address] [place] [address] 10/09/2023 10:22:18 10/12/2023 12:35:24 Contact dermatitis caused by urushiol from [place] poison [place]sey 829963553 L25.5 -Patient presentati on consistent with contact dermatitis from poison k[place]-Patien t agreeable to treatment with 40mg solumedrol once.-Tracy ent agreeable to symptom management with triamcinol one BID PRN-[employer] provided poison kelsey care instructio ns.-Patien t to follow up in clinic if symptoms worsen or do not improve. Cystic acne 60645820 L70 .0 -Patient presentati on concerning for cystic acne. Patient agreeable to dermatolog y referral for further management due to how extent of cystic acne. [id number] Tiffany Glover MA [facility] [address] [place] [address] 11/09/2023 14:16:28 11/10/2023 08:32:08 Nicotine dependence 95567669 F17.210 History of alcohol abuse 005468031 F10.10 Normal weight 75041137 Z 68.20 Cystic acne 53941653 L70 .0 Adult [facility] examination 197363456 Z00.00 [id number] Clara Causey PA-C [facility] [address] [place] [address] 12/10/2023 13:45:54 12/13/2023 15:18:23 Mixed anxiety and depressive disorder 852550241 F41.8 Body mass index 20-24 - normal 797949555 Z68.23 [id number] Clara Causey PA-C [facility] [address] [place] [address] 04/08/2024 18:42:36 04/09/2024 10:05:39 Mixed anxiety and depressive disorder 141341052 F41.8 [id number] Clara Causey PA-C [facility] [address] [place] [address] 04/15/2024 18:36:29 04/18/2024 14:37:32 Pain of right shoulder joint 1586560200 8548986 M25.599 [id number] LEONIDES Flores [address] [place] [address] 06/04/2024 15:47:33 06/06/2024 10:37:06 Pain of right shoulder joint 6465038035 4065919 M25.511 Body mass index 20-24 - normal 804480189 Z68.23 [id number] Clara Causey PA-C [facility] [address] [place] [address] 07/25/2024 15:52:30 07/28/2024 10:45:01 Strain of rotator cuff of shoulder 291430611 S46.011D Body mass index 20-24 - normal 088566232 Z68.23 Health Concerns Section Related Observation LastModified by Organization Detai ls LastModified Time None Recorded Concern Status LastModified by Organization Details LastModified Time None Recorded Advance Directives Directive None Recorded Payers Encounter Date Sequence Insurance Name Policy Number Policy Alvarado Covered Member ID Alvarado Member ID Guarantor Name 12/10/2023 1 [facility] [id number] Jeffrey Kna [id number] Jeffrey Kan 04/08/2024 1 [facility] [id number] Jeffrey E Kan [id number] Jeffrey Kan 04/15/2024 1 [facility] [id number] Jeffrey E Kan [id number] Jeffrey Kan 06/04/2024 1 [facility] [id number] Jeffrey E Kan [id number] Jeffrey Kan 07/25/2024 1 [facility] [id number] Jeffrey E Kan [id number] Jeffrey Kan Notes Date Note Type Note Provider Name and Address Organization Details Recorded Time 12/10/2023 text/html stressed out and work and tired of the unfairness ...says he doesnt have a drivers license for 18 years due to DUI... Clara Causey PA-C Attn: Accounting,[address] [place], [address], [facility] 12/10/2023 14:06:57 04/08/2024 text/html follow up on prozac...doing great...everyone else notices too Clara Causey PA-C Attn: [address]ing,[address] [place], [address], [facility] 04/08/2024 18:58:47 04/15/2024 text/html shoulder pain rt side..no known injury..FROM just painful... Clara Causey PA-C Attn: Accounting,[address] [place], [address], [facility] 04/15/2024 19:39:09 06/04/2024 text/html rt shoulder still painful...xray neg ..no PT yet.. Clara Causey PA-C Attn: Accounting,[address], [place], [address], [facility] 06/04/2024 16:11:10 07/25/2024 text/html shoulder still hurts has completed therapy and xray..no improvement...rt side Clara Causey PA-C Attn: Accounting,[address] [facility], [place], [address], [facility] 07/25/2024 16:24:14
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
--- OUTSIDE RECORDS SUMMARY | 2024-08-02 07:40 | XMS_ITS | Referral Summary ---
Author Organization [facility] Address [address] [place] [address] Care Team Providers Care Emergency Veterinary Technician Name Role Phone Christopher Roger MD Primary Care Provider [phone] Source Comments [facility],non-owned Affiliates and Associated Physician Practices is amultiple site organization consisting of ambulatory clinics and hospital sitesin [place], [place], [place] and [place]. This disclosure is being madepursuant to the Care Everywhere program and may not contain all information available regarding this patient. Last updated 18.[facility] Active Problems Problem Noted Date Diagnosed [...] Comments Blood Pressure 137/81 05/26/2014 1:46 PM CAD LIBRARIAN Pulse 84 05/26/2014 1:46 PM CAD LIBRARIAN Temperature 36.7 C (98.1 F) 05/26/2014 1:46 PM CAD LIBRARIAN Respiratory Rate 16 04/06/2014 1:10 PM CAD LIBRARIAN Oxygen Saturation 100% 04/06/2014 1:10 PM CAD LIBRARIAN Inhaled Oxygen Concentration - - Weight 79.6 kg (175 lb 6.4 oz) 05/26/2014 1:46 P M CAD LIBRARIAN Height 177.8 cm (5' 10 ) 05/26/2014 1:46 PM CAD LIBRARIAN Body Mass Index 25.17 05/26/2014 1:46 PM CAD LIBRARIAN Plan of Treatment Not on file Care Teams Emergency Veterinary Technician Relationship Specialty Start Date End Date Christopher Roger MD [address] [id number] PCP - General 04/21/14
== END 2024-08-02 07:38 | disposition home or self-care (01) ==
LOC: CHSIMG 07:37
PROVIDERS: Visit Provider Physician Assistant
DX: S46.011D Strain of muscle(s) and tendon(s) of the rotator cuff of right shoulder, subsequent encounter (principal); M19.011 Primary osteoarthritis, right shoulder; M67.813 Other specified disorders of tendon, right shoulder; S46.211A Strain of muscle, fascia and tendon of other parts of biceps, right arm, initial encounter; M75.51 Bursitis of right shoulder; M25.411 Effusion, right shoulder
CPT/HCPCS: 73221